=== PATIENT | female | born 1990 | race Hispanic/Latino ===

== ENCOUNTER 2023-12-10 18:12 | Emergency (ER) | payer OTHER ==
[~2023-12-10] VITALS: Ht 162.6 cm; Wt 58.6 kg
[2023-12-10 18:20] VITALS: PULSE 93; RESP 18; TEMP 98.3; O2SAT 100
[2023-12-10] MEDS ORDERED: DEXAMETHASONE4 MG PO (18:34)
[2023-12-10] MEDS ORDERED: LEVOCETIRIZINE D5 MG (18:34)
[2023-12-10] MEDS ORDERED: FAMOTIDINE40 MG PO (19:44)
[2023-12-10] MEDS ORDERED: PREDNISONE20 MG PO (19:45)
[2023-12-10] MEDS: FAMOTIDINE 20 MG TAB PO ONE (20:15)
[2023-12-10 21:32] VITALS: BP 118/58; PULSE 68; RESP 18; TEMP 98.2
== END 2023-12-10 19:51 | disposition home or self-care (01) ==
LOC: FSED 18:15
DX: R21 Rash and other nonspecific skin eruption (principal); B34.9 Viral infection, unspecified; R51.9 Headache, unspecified; R53.81 Other malaise; J45.909 Unspecified asthma, uncomplicated; F41.9 Anxiety disorder, unspecified; Z11.52 Encounter for screening for COVID-19
CPT/HCPCS: 0223U; 81025; 87400; 99283

== ENCOUNTER 2024-06-17 19:22 | Emergency (ER) | payer OTHER ==
[~2024-06-17] VITALS: Ht 165.1 cm; Wt 60.8 kg
[~2024-06-17 19:22] MED LIST: DEXAMETHASONE4 MG PO; FAMOTIDINE40 MG PO; LEVOCETIRIZINE D5 MG; PREDNISONE20 MG PO
[2024-06-17 19:43] VITALS: PULSE 70; RESP 18; TEMP 98.3
[2024-06-17] MEDS ORDERED: DIPHENHYDRAMINE25 M2 PO (19:54)
[2024-06-17] MEDS ORDERED: IBUPROFEN600 MG PO (19:54)
[2024-06-17] MEDS ORDERED: CEFDINIR300 MG PO (19:54)
[2024-06-17] MEDS ORDERED: NASACORT16.9 ML (19:54)
[2024-06-17] MEDS ORDERED: LIDOCAINE HCL 1% 2 ML AMP ONE (20:02)
[2024-06-17] MEDS: IBUPROFEN 200 MG TAB PO ONE (20:06)
[2024-06-17] MEDS: CEFTRIAXONE 1 GM VIAL IM ONE (20:06)
[2024-06-17] MEDS: ACETAMINOPHEN 325 MG TAB PO ONE (20:06)
[2024-06-17 20:35] VITALS: BP 129/74; PULSE 70; RESP 18; TEMP 98.3; O2SAT 100
== END 2024-06-17 20:35 | disposition home or self-care (01) ==
LOC: FSED 19:25
DX: H66.91 Otitis media, unspecified, right ear (principal); J30.9 Allergic rhinitis, unspecified; R51.9 Headache, unspecified; R09.89 Other specified symptoms and signs involving the circulatory and respiratory systems
CPT/HCPCS: 96372; 99282; J0696; J2003

== ENCOUNTER 2024-10-16 10:22 | Emergency (ER) | payer OTHER ==
[~2024-10-16] VITALS: Ht 165.1 cm; Wt 61.9 kg
[~2024-10-16 10:22] MED LIST changes: +CEFDINIR300 MG PO; +DIPHENHYDRAMINE25 M2 PO; +IBUPROFEN600 MG PO; +NASACORT16.9 ML
[2024-10-16 11:32] VITALS: PULSE 78; RESP 16; TEMP 98.4; O2SAT 100
== END 2024-10-16 11:32 | disposition home or self-care (01) ==
LOC: FSED 10:57
DX: T19.2XXA Foreign body in vulva and vagina, initial encounter (principal); J45.909 Unspecified asthma, uncomplicated; F41.9 Anxiety disorder, unspecified
CPT/HCPCS: 99283